=== PATIENT | male | born 1985 | race Caucasian/White ===

== ENCOUNTER 2017-05-14 07:59 | Emergency (ER) | payer OTHER ==
[~2017-05-14] VITALS: Ht 167.6 cm; Wt 90.7 kg
[~2017-05-14 07:59] MED LIST: BENAZEPRIL HCL40 MG PO; BENICAR40 MG PO; CARVEDILOL12.5 MG; CARVEDILOL12.5 MG PO; CLEOCIN HCL150 MG PO; FLEXERIL PO; FUROSEMIDE 40 M40 M1; FUROSEMIDE 40 M40 MG PO; IBUPROFEN 800800 M1; LASIX 40 MG TAB40 M1 PO; LISINOPRIL20 MG; MECLIZINE HCL25 M1 PO; NAPROSYN500 MG PO; NORVASC10 MG PO; PEPCID40 MG PO; PERCOCET 5-3251 EACH PO; PREDNISONE 10 M10 M1 PO; ZPAK PO
[2017-05-14] MEDS ORDERED: CARVEDILOL12.5 MG PO (08:14)
[2017-05-14 11:25] VITALS: BP 129/86
== END 2017-05-14 11:26 | disposition home or self-care (01) ==
LOC: ER 07:59
DX: R51 Headache (principal); I10 Essential (primary) hypertension; F10.99 Alcohol use, unspecified with unspecified alcohol-induced disorder; F17.210 Nicotine dependence, cigarettes, uncomplicated; Z88.0 Allergy status to penicillin; Z88.1 Allergy status to other antibiotic agents